=== PATIENT | male | born 1960 | race Caucasian/White ===

== ENCOUNTER 2016-10-02 21:12 | Emergency (ER) | payer BC ==
[~2016-10-02 21:12] MED LIST: AMARYL2 PO; ASAB PO; GLUCOPHAGE1000 MG PO; PRINZIDE1 TAB PO; WELLSR150 PO; ZOCOR10 PO
== END 2016-10-03 00:05 | disposition home or self-care (01) ==
LOC: ER 21:12
DX: E11.42 Type 2 diabetes mellitus with diabetic polyneuropathy (principal); I10 Essential (primary) hypertension; Z79.84 Long term (current) use of oral hypoglycemic drugs; Z79.82 Long term (current) use of aspirin; Z79.899 Other long term (current) drug therapy
CPT/HCPCS: 93971; 99284